=== PATIENT | female | born 1950 | race African-American/Black ===

== ENCOUNTER 2018-01-27 01:58 | Emergency (ER) | payer MEDICARE, MEDICAID ==
[2018-01-27 02:58] VITALS: TEMP 98; O2SAT 100
[2018-01-27] MEDS: ASPIRIN TABLET 325 MG TAB GT ONE (03:06)
[2018-01-27] MEDS ORDERED: ETOMIDATE INJECTION 2 MG/ML 20ML VIAL IV ONE (03:07)
[2018-01-27] MEDS ORDERED: SODIUM CHLORIDE 0.9% 1000ML 1,000 ML ONE (03:07)
[2018-01-27] MEDS: ETOMIDATE INJECTION 2 MG/ML 20ML VIAL IV ONE (03:13)
[2018-01-27] MEDS ORDERED: diltiaZEM DRIP 125 MG/25 ML VIAL IVPB ONE (03:30)
[2018-01-27] MEDS ORDERED: SODIUM CHLORIDE 0.9% 100ML 100 ML IVPB ONE (03:30)
--- NOTE | 2018-01-27 03:35 | ED.PDOC ---
History of Present Illness - General Chief Complaint: Cardiovascular Problem Stated Complaint: irregular heartbeat Time Seen by Provider: 01/27/18 02:07 Source: EMS notes reviewed, family, long term records Exam Limitations: clinical condition - History of Present Illness Initial Comments: the patient is a 67-year-old -[place] female presenting to the emergency room by EMS from a long-term ventilator care facility. 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 The patient has been in her normal state of health for the last week or 2 at least until it was noted tonight that her heart rate was varying significantly. There is been no evidence of any distress with the patient. No evidence of increased breathing. No evidence of discomfort. No diaphoresis. No evidence of any pain. The patient apparently does normally at least indicate when she is hurting. She does take deep breaths when I try to listen to her lungs. Apparently sometime she can nod yes or no to very simple questions but she is not doing that tonight and often apparently does not at the long term as well. Family was contacted upon her arrival here and they state that they have no knowledge of any arrhythmia with her in the past. I do not know any heart problems only high blood pressure. I do not know of any pulmonary emboli or DVTs in the past. The patient's vital signs have been normal until taking them tonight according to their vital signs listed. Upon arrival here the patient's heart rate would range from the low 90s up to 205 bpm. For the most part her heart rates were averaging in the 170s to 180s. After a dose of diltiazem those did slow down to the 130s on average. She still would have significant runs up to 205 bpm that would last for 20 or 30 seconds before they would slow back down. These were narrow complex beats. I have seen 3 runs of wide complex beats of approximately 7 or 8 beats in a row. She appears to be asymptomatic with all of this largely.comparison of lab work to one month ago shows a marked increase in her creatinine from around 1.05 up to 1.75 here today. It was noted that she was on vancomycin at the time of that lab work and I'm uncertain what her creatinine has been in the last week or 2. Urine output has been very minimal here. Systolic blood pressures have ranged from 95-125 here.the patient is not requiring any increased ventilator settings from her baseline. No evidence of any respiratory distress at this time. best approximation of the duration of the patient's atrial fibrillation based on long term vital signs is less than 12 hours. Timing/Duration: unsure Severity: moderate Improving Factors: nothing Worsening Factors: nothing Allergies/Adverse Reactions: Allergies NO KNOWN ALLERGY Allergy (Verified 01/27/18 02:41) Review of Systems - Review of Systems Review of Systems: 01/27/18 03:34 unable to obtain secondary to patient's clinical condition. Past Medical History (General) - Patient Medical History Hx Seizures: No Hx Stroke: Yes - Right side Hx Cardiac Disorders: Yes Hx Congestive Heart Failure: No Hx Pacemaker: No Hx Hypertension: Yes Hx Thyroid Disease: No Hx Diabetes: No Surgical History: other - Vaccination History Hx Influenza Vaccination: Yes Hx Pneumococcal Vaccination: Yes - Social History Hx Tobacco Use: No Hx Alcohol Use: No - Activities of Daily Living Senior Care/Assisted Living (if applicable):: [facility] Family Medical History - Family History Mother Family History: Unknown Physical Exam - Physical Exam General Appearance: Alert, Comfortable, No apparent distress Eye Exam: bilateral normal - for the most part her visual gaze is fixed up into the left. Ears, Nose, Throat: other - ucous membranes are moist. Neck: non-tender - racheostomy is in place., supple Respiratory: normal breath sounds - patient does have some mildbibasilar posterior rales as would be expected, no respiratory distress, no accessory muscle use Cardiovascular/Chest: normal peripheral pulses, no edema, tachycardia - irregular Peripheral Pulses: radial,right: 2+, radial,left: 2+, dorsalis pedis,right: 2+, dorsalis pedis,left: 2+ Gastrointestinal/Abdominal: non tender - g-tube is in place., soft Rectal Exam: other - Lobo catheter is in place. Extremity: other - the patient appears started developing a flexion contracture of the right wrist and of the left elbow.the patient has increased tonicity of her lower extremities with the desire to extend them Neurologic: alert, normal mood/affect - for this patient given her chronic limitations, other - the patient does actually move all 4 extremities when I touch them though in a very limited fashion Skin Exam: normal color Comments: Vital Signs - 24 hr 01/27/18 01/27/18 01/27/18 02:08 02:18 02:56 Temperature 98.0 F Pulse Rate 143 H 155 H Pulse Rate [ 109 H 118 H left] Respiratory 16 16 Rate Respiratory 16 Rate [Volume Control Data] Blood Pressure 100/57 [left] O2 Sat by Pulse 100 Oximetry Progress - Progress Progress: 01/27/18 03:40 the patient is a 67-year-old -[place] female presented to the emergency room secondary to what appears to be most likely new atrial fibrillation with rapid ventricular rate. There appears to be a very wide swing and her pulse rate with this and she does appear to have periods of short runs of a mild wide complex tachycardia. The patient did slow down some with diltiazem. After discussing with her family and receiving an elevated troponin in return, we did elect to attempt electrocardioversion first at 50 then 70 then 120 J. Electrocardioversion failed to return a normal sinus rhythm. It is however noted that after these attempts she does appear to have had several runs of trying to stay in a sinus rhythm for 15 or 20 seconds before reverting back to what appears to primarily be atrial fibrillation with a rapid ventricular rate. The patient is being placed on a diltiazem drip. She has already been given labetalol and clonidine at the long term. I am reluctant to add another antiarrhythmic onto these above, such as procainamide, amiodarone or ibutilide for fear of worsening arrhythmia. The EKG obtained when the patient appears to mostly be in a sinus rhythm shows T-wave inversions in leads 2, 3, aVF, V5 and V6. There is poor R-wave progression in anterior leads. I have no previous EKGs to compare to. There are frequent PVCs on this EKG. Several other EKGs obtained before the diltiazem show heart rates around 200 with one of them showing a regular supraventricular tachycardia and another showing an irregular supraventricular tachycardia. laboratory does definitively show a urinary tract infection as well as some dehydration. The patient is receiving IV fluids currently and is going to receive a dose of cefepime 1. Urine culture is being performed. The patient does have an elevated d-dimer which certainly with a new arrhythmia may indicate a DVT and/or pulmonary embolus. Renal function is not adequate for CT angiography of the chest. certainly this would help to rule out other large vessel pathology as well. The patient will be transferred for further evaluation of this possibility as well as for further treatment of her arrhythmia and possibility of an underlying acute coronary syndrome. CT scan of the head was performed before giving any more potent blood thinners than aspirin, given her recent history of intracranial hemorrhage. 01/27/18 03:45 CT scan of the head failed to show any acute intracranial hemorrhage, mass effect or hydrocephalus. Chest x-ray shows no new infiltrate, mass or repeat pneumothorax. The patient has received a dose of IV heparin for the possibility of both a PE and acute coronary syndrome. after risks and benefits were discussed with the family and a positive troponin returned indicating significant cardiac distress, the decision was madeto attempt electrocardioversion. the patient had already had one dose of diltiazem 10 mg IV. Pads were placed and the patient was monitored throughout. See nursing notes for details. Respiratory was present. 15 mg of etomidate was used for moderate sedation. synchronized attempts at 50, 70 and 120 J were attempted and all failed to leave the patient with a maintained sinus rhythm. All reverted back to atrial fibrillation eventually. Vital signs remained stable throughout. The patient was of course on a ventilator throughout. diltiazem drip was started immediately after. 01/27/18 04:21 the patient does have what appears to be acute on chronic renal failure and significant dehydration. She is receiving 1 L IV fluid bolus here. She has had very little urine output since her arrival. 01/27/18 04:34 - Results/Orders Results/Orders: Laboratory Tests 01/27/18 01/27/18 01/27/18 02:10 02:15 02:15 WBC 11.6 H RBC 3.19 L Hgb 8.5 L Hct 25.6 L MCV 80.3 L MCH 26.6 L MCHC 33.3 RDW 16.1 H Plt Count 327 MPV 8.1 Absolute Neuts (auto) 8.70 H Absolute Lymphs (auto) 1.60 Absolute Monos (auto) 1.20 H Absolute Eos (auto) 0.00 Absolute Basos (auto) 0.10 Neutrophils % 74.9 Lymphocytes % 14.2 L Monocytes % 10.0 H Eosinophils % 0.4 L Basophils % 0.5 PT INR PTT (SP) D-Dimer, Quantitative Sodium 132 L Potassium 3.5 L Chloride 93 L Carbon Dioxide 28 Anion Gap 14.5 BUN 43 H Creatinine 1.75 H BUN/Creatinine Ratio 24.6 H Random Glucose 118 H Serum Osmolality 276.4 Calcium 9.5 Magnesium 2.4 Total Bilirubin 1.2 H AST 36 ALT 31 Alkaline Phosphatase 61 Creatine Kinase 157 H CK-MB (CK-2) 3.9 CK-MB (CK-2) % 2.48 Troponin I 0.14 H* B-Natriuretic Peptide 351.0 H* Serum Total Protein 7.6 Albumin 3.3 Globulin 4.3 H Albumin/Globulin Ratio 0.8 L TSH Urine Color Yellow Urine Appearance Cloudy Urine pH 7.0 Ur Specific [place] 1.015 Urine Protein 30 Urine Glucose (UA) Negative Urine Ketones Negative Urine Blood Negative Urine Nitrite Negative Urine Bilirubin Negative Urine Urobilinogen 0.2 Ur Leukocyte Esterase Large H Urine RBC 0 Urine WBC Tntc H Ur Epithelial Cells 0-1 Urine Bacteria 4+ H 01/27/18 01/27/18 02:15 02:15 WBC RBC Hgb Hct MCV MCH MCHC RDW Plt Count MPV Absolute Neuts (auto) Absolute Lymphs (auto) Absolute Monos (auto) Absolute Eos (auto) Absolute Basos (auto) Neutrophils % Lymphocytes % Monocytes % Eosinophils % Basophils % PT 12.9 H INR 1.110 PTT (SP) 27.1 D-Dimer, Quantitative 778 H* Sodium Potassium Chloride Carbon Dioxide Anion Gap BUN Creatinine BUN/Creatinine Ratio Random Glucose Serum Osmolality Calcium Magnesium Total Bilirubin AST ALT Alkaline Phosphatase Creatine Kinase CK-MB (CK-2) CK-MB (CK-2) % Troponin I B-Natriuretic Peptide Serum Total Protein Albumin Globulin Albumin/Globulin Ratio TSH 1.65 Urine Color Urine Appearance Urine pH Ur Specific [place] Urine Protein Urine Glucose (UA) Urine Ketones Urine Blood Urine Nitrite Urine Bilirubin Urine Urobilinogen Ur Leukocyte Esterase Urine RBC Urine WBC Ur Epithelial Cells Urine Bacteria Departure - Departure Clinical Impression: Atrial fibrillation with rapid ventricular response, Non-ST elevation ID ( NSTEMI) Urinary tract infection Qualifiers: Urinary tract infection type: site unspecified Hematuria presence: without hematuria Qualified Code(s): N39.0 - Urinary tract infection, site not specified Acute renal failure Qualifiers: Acute renal failure type: unspecified Qualified Code(s): N17.9 - Acute kidney failure, unspecified Disposition: Transfer to Hospital Transfer to Outside Facility - Transfer Information Accepting Provider:: dr acosta Accepting Facility: [facility] Reason for Transfer: specialized care not available
[2018-01-27] MEDS ORDERED: SODIUM CHL 0.9% 100ML MINI-BAG 0 ML IVPB ONE (03:54)
[2018-01-27] MEDS: diltiaZEM DRIP 125 MG in SODIUM CHLORIDE 0.9% 100ML 100 ML IVPB SCH (04:04)
--- NOTE | 2018-01-27 04:09 | CT ---
EXAM DATE: 01/27/2018 3:28 AM CDT. PROCEDURE: CT HEAD WITHOUT IV CONTRAST. INDICATION: new arrhythmia, ich 1 month ago. COMPARISON: None. TECHNIQUE: Axial CT images of the head were acquired without intravenous contrast. This exam was performed according to our departmental dose-optimization program which includes use of Automated Exposure Control, adjustment of the mA and/or kV according to patient size and/or use of iterative reconstruction technique. FINDINGS: No acute intracranial hemorrhage. Delaney white matter differentiation is preserved. No mass effect or midline shift. Scattered white matter hypoattenuation compatible with moderate chronic microvascular angiopathy. Mild generalized brain volume loss. Unremarkable orbits. Scattered mucosal thickening throughout the paranasal sinuses. Mastoid air cells are clear. Intact calvarium. IMPRESSION: No acute intracranial abnormality. Moderate chronic small vessel ischemic disease. Electronically signed by: Jovanni Simpson MD 01/27/2018 4:07 AM CDT
[2018-01-27] MEDS ORDERED: SODIUM CHLORIDE 0.9% 50ML 0 ML ONE (04:10)
[2018-01-27] MEDS ORDERED: CEFEPIME 2 GM VIAL IVPB ONE (04:10)
[2018-01-27] MEDS ORDERED: SODIUM CHL 0.9% 50ML MIN-BAG+ 50 ML IVPB ONE (04:18)
[2018-01-27] MEDS: HEPARIN SODIUM (PORCINE) 5,000 U/ML VIAL IV ONE (04:27)
[2018-01-27] MEDS: CEFEPIME 1 GM in SODIUM CHLORIDE 0.9% 50ML 50 ML IVPB ONE (04:31)
[2018-01-27 05:04] VITALS: BP 98/79
--- NOTE | 2018-01-27 06:37 | RAD ---
Chest single view on 01/27/2018 CLINICAL INDICATION: New atrial fibrillation with rapid ventricular return COMPARISON: 01/18/2018 FINDINGS: Tracheostomy tube tip is in the upper thoracic trachea. There is mild linear atelectasis in the left lung base. The lungs are otherwise clear. Cardiac, hilar and mediastinal contours are within normal limits. Pulmonary vascularity is within normal limits. IMPRESSION: No acute disease. Electronically signed by: Jin 01/27/2018 6:36 AM CDT
== END 2018-01-27 05:10 | disposition short-term general hospital (02) ==
LOC: ER 01:58
DX: I21.4 Non-ST elevation (NSTEMI) myocardial infarction (principal); I48.91 Unspecified atrial fibrillation; N39.0 Urinary tract infection, site not specified; N17.9 Acute kidney failure, unspecified; Z99.11 Dependence on respirator [ventilator] status; E86.0 Dehydration

== ENCOUNTER 2018-03-22 15:06 | Emergency (ER) | payer MEDICARE, MEDICAID ==
[2018-03-22 15:22] VITALS: TEMP 97.4; O2SAT 100
--- NOTE | 2018-03-22 16:28 | RAD ---
EXAM DESCRIPTION: Neck,Soft Tissue CLINICAL HISTORY: 67 years Female, trach placement COMPARISON: Chest x-ray portable 01/27/2018. TECHNIQUE: Cross table AP and lateral portable soft tissue neck and upper chest. FINDINGS: Endotracheal cuff interpreted to be in customary position and similar in position to the prior portable chest x-ray. With a cold metallic screening in the distal aspect is overlying the chest and the trachea as seen on the lateral and AP images. A similar line can be seen connected to the endotracheal cuff on the prior study. The included airway shows no abnormal foreign bodies. IMPRESSION: Endotracheal cuff in customary position. Stable since January 2013. No foreign bodies in the airway or chest wall. CRITICAL COMMUNICATION: The critical value was discussed directly by phone with Dr. Benjamin Jin at approximately 1620 hours, on March 22, 2018. Electronically signed by: Santi Mobley MD 03/22/2018 4:27 PM CDT
--- NOTE | 2018-03-22 16:46 | ED.PDOC ---
History of Present Illness - General Chief Complaint: General Stated Complaint: tracheotomy verification Time Seen by Provider: 03/22/18 16:42 Source: patient Exam Limitations: clinical condition - History of Present Illness Initial Comments: The patient is a 67-year-old female sent up here to the emergency room from [facility] secondary to a questionable read on a x-ray after a trach replacement. The patient is in no distress. She is oxygenating and ventilating well on the ventilator. She looks around and is calm and quiet. External examination of thetracheostomy appears to show that it is in place. There seems to be moving freely [id number] throughout. No significant bleeding. Collar is in place. Allergies/Adverse Reactions: Allergies NO KNOWN ALLERGY Allergy (Verified 03/22/18 15:21) Review of Systems - Review of Systems Review of Systems: 03/22/18 16:44 atient unable to give review of systems. Past Medical History (General) - Patient Medical History Hx Seizures: No Hx Stroke: Yes - Right side Hx Cardiac Disorders: Yes Hx Congestive Heart Failure: No Hx Pacemaker: No Hx Hypertension: Yes Hx Thyroid Disease: No Hx Diabetes: No Surgical History: other - Vaccination History Hx Influenza Vaccination: Yes Hx Pneumococcal Vaccination: Yes - Social History Hx Tobacco Use: No Hx Alcohol Use: No - Activities of Daily Living Senior Living/Assisted Living (if applicable):: [facility] Family Medical History - Family History Mother Family History: Unknown Physical Exam - Physical Exam General Appearance: Alert, Comfortable, No apparent distress Eye Exam: bilateral normal Ears, Nose, Throat: normal pharynx Neck: other - tracheostomy is in place Respiratory: lungs clear, normal breath sounds, no respiratory distress, no accessory muscle use Cardiovascular/Chest: normal peripheral pulses, no edema Peripheral Pulses: radial,right: 2+, radial,left: 2+ Gastrointestinal/Abdominal: non tender, soft, other - perative sites noted Rectal Exam: deferred Neurologic: alert, normal mood/affect - for this patient Skin Exam: normal color Comments: Vital Signs - 8 hr 03/22/18 15:10 Temperature 97.4 F L Pulse Rate [ 60 pulse ox] Respiratory 18 Rate Blood Pressure 164/79 [Right Arm] O2 Sat by Pulse 100 Oximetry Progress - Progress Progress: 03/22/18 16:45 the patient is a 67-year-old -[place] female patient presenting for x- ray secondary due to a questionable read from a previous x-ray on her trach replacement. Soft tissue of the neck was performed here which shows no evidence of any unusual placement of the trach. It does appear appropriate. The patient is in no distress. Continue current use. The patient will be transferred back to [facility]. Return to ER for emergencies. Departure - Departure Clinical Impression: Tracheostomy in place Disposition: Discharge to Home or Self Care Condition: Fair Departure Forms: ED Discharge - Pt. Copy, Patient Portal Self Enrollment Diet: other Activity: increase activity as tolerated Referrals: KRISHNA OATES [Primary Care Provider] - 1-2 Weeks Additional Instructions: the patient is a 67-year-old -[place] female patient presenting for x- ray secondary due to a questionable read from a previous x-ray on her trach replacement. Soft tissue of the neck was performed here which shows no evidence of any unusual placement of the trach. It does appear appropriate. The patient is in no distress. Continue current use. The patient will be transferred back to [facility]. Return to ER for emergencies.
[2018-03-22 17:16] VITALS: BP 176/80
== END 2018-03-22 17:16 ==
LOC: ER 15:06
DX: Z43.0 Encounter for attention to tracheostomy (principal); I10 Essential (primary) hypertension

== ENCOUNTER 2018-04-17 01:23 | Emergency (ER) | payer MEDICARE, MEDICAID ==
[2018-04-17] MEDS ORDERED: IPRATROPIUM BROMIDE NEBS 0.5 MG/2.5 ML VIAL NEB ONE (01:41)
[2018-04-17] MEDS ORDERED: LEVALBUTEROL NEBS 1.25 MG/3 ML VIAL NEB ONE (01:42)
[2018-04-17] MEDS: cloNIDine HCL 0.1 MG TAB GT ONE (01:44)
[2018-04-17] MEDS: FUROSEMIDE 40 MG TAB GT ONE (01:44)
--- NOTE | 2018-04-17 02:15 | RAD ---
EXAM DESCRIPTION: 2 views of the chest CLINICAL HISTORY: hypoxia, resp distress, vent pt COMPARISON: 01/27/2018 FINDINGS: Frontal and lateral views of the chest. Tracheostomy in place. Cardiomegaly. Diffuse bilateral airspace opacity. No pneumothorax or definite pleural effusion. No acute osseous abnormalities. Leads overlie the chest. Upper abdominal soft tissues are unremarkable. IMPRESSION: 1. Diffuse bilateral airspace opacities. This could be related to pulmonary edema or bilateral pneumonic process. 2. Cardiomegaly. Electronically signed by: Angel Young 04/17/2018 2:14 AM CDT
[2018-04-17] MEDS: LEVALBUTEROL NEBS 1.25 MG/3 ML VIAL NEB ONE (02:54)
[2018-04-17] MEDS: IPRATROPIUM BROMIDE NEBS 0.5 MG/2.5 ML VIAL NEB ONE (02:54)
--- NOTE | 2018-04-17 05:16 | ED.PDOC ---
History of Present Illness - General Chief Complaint: Respiratory Problem Stated Complaint: respiratory distress Time Seen by Provider: 04/17/18 01:31 Source: RN notes reviewed, EMS notes reviewed, [facility] records Exam Limitations: clinical condition - History of Present Illness Initial Comments: the patient is a 68-year-old [place] female presenting to the emergency room secondary to respiratory distress at the long-term ventilator care facility. The patient has long-term respiratory failure and is on a ventilator normally. Over the last 2 days she has had increased anxiety and increased work of breathing. Today she has had significant oxygen desaturations down into the 70th percentile with pink frothy sputum coming up the ET tube. She does have a history of congestive heart failure apparently. She has a normal sinus rhythm upon arrival however her systolic blood pressures have ranged as high as 230. Additionally look at her paperwork [facility] the [facility] she has gained approximately 13 pounds over the last couple of months. There's been no fever. She has had multiple infections in the past. She does have chronic right upper extremity dependent edema from a source that I'm not certain at this point. I'm uncertain if she has had any DVTs or pulmonary emboli in the past but there is no record of it with the [facility]it[facility]iary records. She did have a elevated d-dimer of 500 on a blood check drawn here as an outpatient 3 months ago but I have no records as to any further evaluation of that done at the time. She is not currently on any blood thinners according to her current medication list. She does not appear to be on any antibiotics either. The patient is unable to communicate but she does look around and is somewhat expressive with her facial expressions. She has significant contractures of the left upper extremity and again significant edema of the right upper extremity. She has multiple scars from previous central line sites. Timing/Duration: 24 hours Severity: severe Improving Factors: nothing Worsening Factors: nothing Allergies/Adverse Reactions: Allergies NO KNOWN ALLERGY Allergy (Verified 03/22/18 15:21) Home Medications: Ambulatory Orders Acetaminophen [Tylenol] 04/17/18 Amiodarone HCl 200 mg PO 04/17/18 Budesonide (Inhalation) [Budesonide] 04/17/18 Cyanocobalamin [Vitamin B-12] 04/17/18 Cyclobenzaprine HCl 5 mg PO 04/17/18 Docusate Sodium 100 mg PO 04/17/18 Famotidine 20 mg PO 04/17/18 Ferrous Sulfate 220 mg PO 04/17/18 Folic Acid 1 mg PO 04/17/18 Hydralazine HCl 100 mg PO 04/17/18 Ipratropium [place] Nebs [Atrovent NEBS] 0.5 mg INH 04/17/18 LORazepam [Ativan] 0.5 mg PO 04/17/18 Labetalol HCl 200 mg PO 04/17/18 Levalbuterol Nebs [Xopenex NEBS] 04/17/18 Levetiracetam [Keppra] 04/17/18 Magnesium Hydroxide [Milk Of Magnesia] 04/17/18 Metoprolol Tartrate 50 mg PO 04/17/18 Polyethylene Glycol 3350 [Miralax] 04/17/18 Review of Systems - Review of Systems Review of Systems: 04/17/18 05:16 unable to perform review of systems secondary to patient's chronic medical condition Past Medical History (General) - Patient Medical History Hx Seizures: No Hx Stroke: Yes - Right side Hx Cardiac Disorders: Yes Hx Congestive Heart Failure: No Hx Pacemaker: No Hx Hypertension: Yes Hx Thyroid Disease: No Hx Diabetes: No Hx Renal Disease: Yes - Vaccination History Hx Influenza Vaccination: Yes Hx Pneumococcal Vaccination: Yes Immunizations Up to Date: Yes - Social History Hx Tobacco Use: No Hx Alcohol Use: No - Activities of Daily Living Intermediate/Assisted Living (if applicable):: [facility] Family Medical History - Family History Mother Family History: Unknown Physical Exam - Physical Exam General Appearance: Alert, Anxious, Other - initially diaphoretic Eye Exam: bilateral normal Ears, Nose, Throat: hearing grossly normal, normal ENT inspection, normal pharynx Neck: non-tender, supple, other - tracheostomy is in place with chronic changes made by the fixator Respiratory: respiratory distress, accessory muscle use, crackles, rales, rhonchi Cardiovascular/Chest: other - edema of the right upper extremity. +1 edema bilateral lower extremities. Peripheral Pulses: radial,right: 1+, radial,left: 1+, dorsalis pedis,right: 1+, dorsalis pedis,left: 1+ Gastrointestinal/Abdominal: non tender - G-tube is in place., soft Rectal Exam: other - Lobo catheter is in place. Back Exam: no CVA tenderness Extremity: normal capillary refill, pedal edema - +1, other - the patient does have significant rigidity to her extremities. She dooes have flexion contracture at the left elbow as well as stiffness of the shoulder. Neurologic: alert, other - she is anxious. Unable to test orientation. Unable to test for sensation and the patient has essentially a quadriplegic Skin Exam: normal color Comments: Vital Signs - 24 hr 04/17/18 04/17/18 04/17/18 01:36 01:45 01:48 Temperature 99.0 F Pulse Rate [ 90 88 Right] Respiratory 20 20 20 Rate Blood Pressure 210/110 186/94 [Right Arm] O2 Sat by Pulse 97 94 L Oximetry 04/17/18 04/17/18 02:23 03:51 Temperature Pulse Rate [ 84 70 Right] Respiratory 20 20 Rate Blood Pressure 136/82 124/68 [Right Arm] O2 Sat by Pulse 96 95 Oximetry Progress - Progress Progress: 04/17/18 05:21 the patient is a 68-year-old -[place] female presenting to the emergency room secondary to respiratory distress. the patient was in pulmonary edema secondary to uncontrolled hypertension with systolic blood pressures peaking at 230 on that initial check with EMS. By the time she arrived here her systolic blood pressure was down to 210. We were able to get her blood pressures down into the 120s prior to transfer. Lung mayorga did clear with improvement of her blood pressures. She did receive a dose of Lasix as well and has put out some urine. There is a question of a background pneumonia with this patient. She does have scattered pulmonary opacities and she does have a elevation of white blood cell count. A blood culture has been performed. She is receiving a dose of cefepime. She is oxygenating much better at this point in time. This was a hypertensive emergency with resultant pulmonary edema. The patient additionally does have an elevated d-dimer and will need at least all 4 extremity Dopplers if not additional pulmonary imaging the form of a CT angiogram versus a VQ scan. We did obtain a ultrasound guided 18-gauge catheter to the left lower basilic vein with the intent of performing a CT angiogram here, however due to the patient's contracture of the left upper extremity the catheter kinked and pulled out. I do not believe at this time it would benefit the patient to have a central line placed here simply for the purpose of the CT angiogram. I believe she would be better off having a midline placed at the receiving facility as an examination of her body shows significant scarring from multiple previous central lines. She does have a peripheral IV through which she is getting IV antibiotics currently. The patient is stable at this time for transfer and further workup and treatment. we have been able to wean back down the patient's ventilator settings closer to her baseline but the pressure support that has been added seems to be beneficial still. the patient's urine is of course still not clear as she does have a chronic indwelling Lobo catheter. Culture will be done. critical care time spent on this patient excluding otherwise billable procedures , for treatment of her hypertensive emergency with pulmonary edema is 45 minutes. - Results/Orders Results/Orders: 04/17/18 01:31 Telemetry .CONTINUOUS 04/17/18 01:32 ABG [Arterial Blood Gas] Stat 04/17/18 01:44 URINE CULTURE W/COLONY COUNT Stat 04/17/18 01:45 BLOOD CULTURE Stat chest x-ray shows evidence of cardiomegaly and fluid overload as well as scattered pulmonary opacities that could be from pulmonary edema and/or pneumonia. 04/17/18 03:00 EKG STAT showed normal sinus rhythm with a mild right axis deviation. Poor R- wave progression in anterior leads. No acute ST segment changes worrisome for ischemia. She does have mild T-wave inversion in lead V6. She does have a borderline corrected QT interval. Rate is 87 bpm. Laboratory Results - last 24 hr 04/17/18 04/17/18 04/17/18 01:44 01:45 01:45 WBC 15.1 H RBC 3.42 L Hgb 9.1 L Hct 28.2 L MCV 82.5 MCH 26.6 L MCHC 32.4 L RDW 15.6 H Plt Count 272 MPV 8.6 Absolute Neuts (auto) 13.10 H Absolute Lymphs (auto) 0.70 L Absolute Monos (auto) 1.10 H Absolute Eos (auto) 0.20 Absolute Basos (auto) 0.10 Neutrophils % 86.6 H Lymphocytes % 4.8 L Monocytes % 7.1 Eosinophils % 1.1 Basophils % 0.4 PT INR PTT (SP) D-Dimer, Quantitative Sodium 139 Potassium 3.8 Chloride 103 Carbon Dioxide 29 Anion Gap 10.8 L BUN 25 H Creatinine 0.98 BUN/Creatinine Ratio 25.5 H Random Glucose 143 H Serum Osmolality 284.4 Lactic Acid Calcium 9.1 Total Bilirubin 0.7 AST 17 ALT 18 Alkaline Phosphatase 45 Creatine Kinase 75 CK-MB (CK-2) 1.5 CK-MB (CK-2) % Not Reportable Troponin I 0.02 B-Natriuretic Peptide 661.0 H* Serum Total Protein 7.1 Albumin 3.5 Globulin 3.6 H Albumin/Globulin Ratio 1.0 L Urine Color Yellow Urine Appearance Sl cloudy Urine pH 8.5 H Ur Specific [place] 1.020 Urine Protein 100 H Urine Glucose (UA) Negative Urine Ketones Negative Urine Blood Small H Urine Nitrite Negative Urine Bilirubin Negative Urine Urobilinogen 0.2 Ur Leukocyte Esterase Moderate H Urine RBC 10-20 H Urine WBC 10-20 H Ur Epithelial Cells 0 Amorphous Sediment 2+ Urine Bacteria 4+ H Urine Mucus Small 04/17/18 04/17/18 01:45 01:45 WBC RBC Hgb Hct MCV MCH MCHC RDW Plt Count MPV Absolute Neuts (auto) Absolute Lymphs (auto) Absolute Monos (auto) Absolute Eos (auto) Absolute Basos (auto) Neutrophils % Lymphocytes % Monocytes % Eosinophils % Basophils % PT 13.2 H INR 1.140 PTT (SP) 28.0 D-Dimer, Quantitative 932 H* Sodium Potassium Chloride Carbon Dioxide Anion Gap BUN Creatinine BUN/Creatinine Ratio Random Glucose Serum Osmolality Lactic Acid 0.8 Calcium Total Bilirubin AST ALT Alkaline Phosphatase Creatine Kinase CK-MB (CK-2) CK-MB (CK-2) % Troponin I B-Natriuretic Peptide Serum Total Protein Albumin Globulin Albumin/Globulin Ratio Urine Color Urine Appearance Urine pH Ur Specific [place] Urine Protein Urine Glucose (UA) Urine Ketones Urine Blood Urine Nitrite Urine Bilirubin Urine Urobilinogen Ur Leukocyte Esterase Urine RBC Urine WBC Ur Epithelial Cells Amorphous Sediment Urine Bacteria Urine Mucus Departure - Departure Clinical Impression: Hypertensive emergency Pulmonary edema Qualifiers: Chronicity: acute Qualified Code(s): J81.0 - Acute pulmonary edema CHF exacerbation Qualifiers: Congestive heart failure type: unspecified congestive heart failure type Qualified Code(s): I50.9 - Heart failure, unspecified Disposition: Transfer to Hospital Condition: Serious Referrals: KRISHNA OATES [Primary Care Provider] - 1-2 Weeks Home Medications: Ambulatory Orders Acetaminophen [Tylenol] 04/17/18 Amiodarone HCl 200 mg PO 04/17/18 Budesonide (Inhalation) [Budesonide] 04/17/18 Cyanocobalamin [Vitamin B-12] 04/17/18 Cyclobenzaprine HCl 5 mg PO 04/17/18 Docusate Sodium 100 mg PO 04/17/18 Famotidine 20 mg PO 04/17/18 Ferrous Sulfate 220 mg PO 04/17/18 Folic Acid 1 mg PO 04/17/18 Hydralazine HCl 100 mg PO 04/17/18 Ipratropium [place] Nebs [Atrovent NEBS] 0.5 mg INH 04/17/18 LORazepam [Ativan] 0.5 mg PO 04/17/18 Labetalol HCl 200 mg PO 04/17/18 Levalbuterol Nebs [Xopenex NEBS] 04/17/18 Levetiracetam [Keppra] 04/17/18 Magnesium Hydroxide [Milk Of Magnesia] 04/17/18 Metoprolol Tartrate 50 mg PO 04/17/18 Polyethylene Glycol 3350 [Miralax] 04/17/18 Transfer to Outside Facility - Transfer Information Accepting Provider:: dr stauffer Accepting Facility: [facility] Reason for Transfer: ICU
[2018-04-17 05:44] VITALS: BP 165/78; TEMP 98.9; O2SAT 97
[2018-04-17] MEDS: CIPROFLOXACIN 250 MG TAB PO ONE (05:50)
[2018-04-17] MEDS ORDERED: CEFEPIME 2 GM VIAL IVPB ONE (05:56)
[2018-04-17] MEDS ORDERED: SODIUM CHL 0.9% 50ML MIN-BAG+ 50 ML IVPB ONE (05:56)
[2018-04-17] MEDS: CEFEPIME 2 GM in SODIUM CHL 0.9% 50ML MIN-BAG+ 50 ML IVPB ONE (05:59)
[2018-04-17] MEDS: NITROGLYCERIN 2% 1 GM UD TOP ONE (06:03)
[2018-04-17] MEDS ORDERED: NITROGLYCERIN 2% 1 GM UD TOP ONE (06:03)
== END 2018-04-17 06:30 | disposition short-term general hospital (02) ==
LOC: ER 01:23
DX: J81.0 Acute pulmonary edema (principal); I16.0 Hypertensive urgency; I11.0 Hypertensive heart disease with heart failure; I50.9 Heart failure, unspecified; M62.422 Contracture of muscle, left upper arm; Z99.11 Dependence on respirator [ventilator] status; Z79.899 Other long term (current) drug therapy; Z86.73 Personal history of transient ischemic attack (TIA), and cerebral infarction without residual deficits
CPT/HCPCS: 71045; 80053; 81001; 82550; 82553; 83605; 83880; 84484; 85025; 85379; 85610; 85730; 87040; 87086; 87088; 87186; 93005; 94002; 94640; 94770; J0692; J7050; J7614; J7644

== ENCOUNTER 2018-04-25 07:27 | Emergency (ER) | payer MEDICARE, MEDICAID ==
[2018-04-25 07:36] VITALS: O2SAT 100
[2018-04-25] MEDS ORDERED: IPRATROPIUM/ALBUTEROL 3 ML VIAL NEB ONE ×2 (07:39→07:51)
--- NOTE | 2018-04-25 07:46 | ED.PDOC ---
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 Timing/Duration: 1-3 hours Severity: moderate Improving Factors: nothing Worsening Factors: nothing Associated Symptoms: shortness of breath Allergies/Adverse Reactions: Allergies NO KNOWN ALLERGY Allergy (Verified 03/22/18 15:21) Home Medications: Ambulatory Orders Acetaminophen [Tylenol] 04/17/18 Amiodarone HCl 200 mg PO 04/17/18 Budesonide (Inhalation) [Budesonide] 04/17/18 Cyanocobalamin [Vitamin B-12] 04/17/18 Cyclobenzaprine HCl 5 mg PO 04/17/18 Docusate Sodium 100 mg PO 04/17/18 Famotidine 20 mg PO 04/17/18 Ferrous Sulfate 220 mg PO 04/17/18 Folic Acid 1 mg PO 04/17/18 Hydralazine HCl 100 mg PO 04/17/18 Ipratropium [place] Nebs [Atrovent NEBS] 0.5 mg INH 04/17/18 LORazepam [Ativan] 0.5 mg PO 04/17/18 Labetalol HCl 200 mg PO 04/17/18 Levalbuterol Nebs [Xopenex NEBS] 04/17/18 Levetiracetam [Keppra] 04/17/18 Magnesium Hydroxide [Milk Of Magnesia] 04/17/18 Metoprolol Tartrate 50 mg PO 04/17/18 Polyethylene Glycol 3350 [Miralax] 04/17/18 Cefdinir [Omnicef] 300 mg PO BID 10 Days #20 cap 04/25/18 Review of Systems - Review of Systems Respiratory: States: see HPI Neurological: States: see HPI, pre-existing deficit Unable to Obtain Due To: condition, clinical condition, other - non verbal Past Medical History (General) - Patient Medical History Hx Seizures: No Hx Stroke: Yes - Right side Hx Cardiac Disorders: Yes Hx Congestive Heart Failure: No Hx Pacemaker: No Hx Hypertension: Yes Hx Thyroid Disease: No Hx Diabetes: No Hx Renal Disease: Yes Surgical History: other - tracheostomy - Vaccination History Hx Influenza Vaccination: Yes Hx Pneumococcal Vaccination: Yes - Social History Hx Tobacco Use: No Hx Alcohol Use: No - Activities of Daily Living Patient Lives Alone: No Long Term/Assisted Living (if applicable):: [facility] Grooming Ability: Total Assistance Eating (Feeding) Ability: Total Assistance Toileting Ability: Total Assistance Family Medical History - Family History Mother Family History: Unknown Physical Exam - Physical Exam General Appearance: Comfortable, No apparent distress, Other - awake Eye Exam: bilateral normal Ears, Nose, Throat: hearing grossly normal Neck: supple, normal inspection Respiratory: no respiratory distress, rhonchi - right >left Cardiovascular/Chest: normal peripheral pulses, regular rate, rhythm, no murmur Peripheral Pulses: radial,right: 2+, radial,left: 2+ Gastrointestinal/Abdominal: non tender, soft, no organomegaly, other - G-tube intact/patent Extremity: no pedal edema, other - joint stiffness upper and lower extremities Neurologic: alert, other - non verbal Skin Exam: normal color, warm/dry Lymphatic: no adenopathy Progress - Progress Progress: 04/25/18 07:49 04/25/18 07:39 Mechanical Ventilation DAILY SVN/Updraft Therapy .[facility] 04[facility]25[facility]18 09[facility] Vital Signs - 8 hr 04/25/18 07:35 Temperature 99.1 F Pulse Rate [ 83 Right Radial] Respiratory 16 Rate Blood Pressure 136/76 [Right Arm] O2 Sat by Pulse 100 Oximetry 04/25/18 10:20 tracheostomy de clogged suctioned thick mucus secretion after instilling saline and TV went up to 500 with goo Sa02 - Results/Orders Results/Orders: 04/25/18 07:39 Mechanical Ventilation DAILY SVN/Updraft Therapy .ONCE 04/25/18 07:51 IV Care:Saline Lock per Protoc QSHIFT SVN/Updraft Therapy .ONCE 04/25/18 08:00 EKG STAT 04/25/18 08:28 URINE CULTURE W/COLONY COUNT Stat 04/25/18 09:00 Updrafts Daily Updrafts Daily Laboratory Results - last 24 hr 04/25/18 04/25/18 04/25/18 08:00 08:00 08:28 WBC 13.5 H RBC 3.86 L Hgb 10.6 L Hct 32.4 L MCV 84.1 MCH 27.4 MCHC 32.8 L RDW 16.2 H Plt Count 233 MPV 8.4 Absolute Neuts (auto) 12.20 H Absolute Lymphs (auto) 0.40 L Absolute Monos (auto) 0.80 Absolute Eos (auto) 0.00 Absolute Basos (auto) 0.10 Neutrophils % 90.5 H Lymphocytes % 2.9 L Monocytes % 6.0 Eosinophils % 0.1 L Basophils % 0.5 PT 12.4 INR 1.070 PTT (SP) 28.1 Sodium 139 Potassium 3.6 Chloride 103 Carbon Dioxide 27 Anion Gap 12.6 BUN 32 H Creatinine 1.10 BUN/Creatinine Ratio 29.1 H Random Glucose 160 H Serum Osmolality 287.9 Lactic Acid 1.0 Calcium 9.1 Magnesium 1.9 Total Bilirubin 0.7 Direct Bilirubin 0.1 Indirect Bilirubin 0.6 AST 18 ALT 16 Alkaline Phosphatase 40 L Creatine Kinase 78 CK-MB (CK-2) 2.3 CK-MB (CK-2) % Not Reportable Troponin I 0.03 Serum Total Protein 7.1 Albumin 3.6 Urine Color Yellow Urine Appearance Sl cloudy Urine pH 6.0 Ur Specific [place] 1.015 Urine Protein 100 H Urine Glucose (UA) Negative Urine Ketones Negative Urine Blood Trace-lysed H Urine Nitrite Negative Urine Bilirubin Negative Urine Urobilinogen 1.0 Ur Leukocyte Esterase Small H Urine RBC 3-5 H Urine WBC 5-10 H Ur Epithelial Cells 1-3 Urine Bacteria 1+ - EKG/XRAY/CT EKG: Sinus Comments: HR-72 XRAY: chest - no pneumothorax or effusion,interval improvement of the lung since April 17 Departure - Departure Clinical Impression: Ventilator dependence, History of pneumonia Tracheostomy complication, unspecified Qualifiers: Tracheostomy complication: stoma malfunction Qualified Code(s): J95.03 - Malfunction of tracheostomy stoma Chronic respiratory failure, unspecified whether with hypoxia or hypercapnia Qualifiers: Respiratory failure complication: unspecified whether with hypoxia or hypercapnia Qualified Code(s): J96.10 - Chronic respiratory failure, unspecified whether with hypoxia or hypercapnia Time of Disposition: 10:24 Disposition: Discharge to SNF Condition: Fair Departure Forms: ED Discharge - Pt. Copy, Patient Portal Self Enrollment Referrals: KRISHNA OATES [Primary Care Provider] - 1-2 Weeks Prescriptions: Cefdinir [Omnicef] 300 mg PO BID 10 Days #20 cap Home Medications: Ambulatory Orders Acetaminophen [Tylenol] 04/17/18 Amiodarone HCl 200 mg PO 04/17/18 Budesonide (Inhalation) [Budesonide] 04/17/18 Cyanocobalamin [Vitamin B-12] 04/17/18 Cyclobenzaprine HCl 5 mg PO 04/17/18 Docusate Sodium 100 mg PO 04/17/18 Famotidine 20 mg PO 04/17/18 Ferrous Sulfate 220 mg PO 04/17/18 Folic Acid 1 mg PO 04/17/18 Hydralazine HCl 100 mg PO 04/17/18 Ipratropium [place] Nebs [Atrovent NEBS] 0.5 mg INH 04/17/18 LORazepam [Ativan] 0.5 mg PO 04/17/18 Labetalol HCl 200 mg PO 04/17/18 Levalbuterol Nebs [Xopenex NEBS] 04/17/18 Levetiracetam [Keppra] 04/17/18 Magnesium Hydroxide [Milk Of Magnesia] 04/17/18 Metoprolol Tartrate 50 mg PO 04/17/18 Polyethylene Glycol 3350 [Miralax] 04/17/18 Cefdinir [Omnicef] 300 mg PO BID 10 Days #20 cap 04/25/18 Additional Instructions: Return To ER as needed;Follow up with primary Md 26 april 2018
--- NOTE | 2018-04-25 08:08 | RAD ---
EXAM DESCRIPTION: Chest,1 View CLINICAL HISTORY: sob COMPARISON: April 17, 2018 FINDINGS: A tracheostomy tube remains in place. The heart is at the upper limits of normal size, stable. Prominence of the right paratracheal stripe is unchanged from the previous exam. Subsegmental atelectasis or scarring is noted in the left lung base. Nor space consolidation or pleural effusion. The lumbar rims are within normal range. There is no pneumothorax or acute fracture. IMPRESSION: No acute intrathoracic abnormality. Interval improvement in appearance of the lungs from April 17, 2018. Electronically signed by: Marcus Morrow MD 04/25/2018 8:06 AM CDT
[2018-04-25] MEDS ORDERED: SODIUM CHLORIDE 0.9% 500ML 500 ML IVS ONE (08:57)
[2018-04-25] MEDS ORDERED: cefTRIAXone SODIUM 2 GM in SODIUM CHL 0.9% 100ML MINI-BAG 100 ML IVPB ONE (09:49)
[2018-04-25] MEDS ORDERED: SODIUM CHL 0.9% 100ML MINI-BAG 100 ML IVPB ONE (09:58)
[2018-04-25] MEDS ORDERED: HEPARIN SODIUM 100 U/ML 5 ML SYG IV ONE (11:21)
[2018-04-25 11:42] VITALS: BP 132/71; TEMP 99.1
== END 2018-04-25 11:18 ==
LOC: ER 07:27
DX: J95.03 Malfunction of tracheostomy stoma (principal); J96.10 Chronic respiratory failure, unspecified whether with hypoxia or hypercapnia; I69.398 Other sequelae of cerebral infarction; I10 Essential (primary) hypertension; Z87.01 Personal history of pneumonia (recurrent); Z79.899 Other long term (current) drug therapy; Z99.11 Dependence on respirator [ventilator] status; Z74.01 Bed confinement status
CPT/HCPCS: 36415; 71045; 80048; 80076; 81001; 82550; 82553; 82948; 83605; 84484; 85025; 85610; 85730; 87086; 93005; 94002; 94640; J0696; J1642; J7040; J7050; J7620

== ENCOUNTER 2018-06-27 20:44 | Emergency (ER) | payer MEDICARE, MEDICAID ==
[2018-06-27] MEDS ORDERED: EPINEPHrine INJ 0.1 MG/ML 10 ML SYG IV ONE (20:45)
[2018-06-27] MEDS ORDERED: SODIUM CHLORIDE 0.9% 1000ML 1,000 ML ONE ×2 (21:01→21:56)
--- NOTE | 2018-06-27 21:32 | RAD ---
EXAM DESCRIPTION: Chest,1 View CLINICAL HISTORY: 68 years Female, POST CPR COMPARISON: AP chest June 06, 2018 FINDINGS: Tracheostomy tube is present There is a moderate to large left pneumothorax. No significant pleural effusion. No obvious pulmonary consolidation. Cardiac silhouette appears mildly enlarged. There is mild rightward deviation of the cardiac and mediastinal silhouette. Aortic atherosclerosis and tortuosity is noted. Osseous structures are unremarkable. IMPRESSION: Moderate to large left pneumothorax with mild rightward cardiomediastinal shift. Findings communicated to Dr. Anand at 2130 hours central time on June 27, 2018. Electronically signed by: Juan Espinosa MD 06/27/2018 9:30 PM CDT
[2018-06-27] MEDS ORDERED: CHLORHEXIDINE GLUCONATE 4 % 15 ML UD TOP ONE (21:33)
[2018-06-27] MEDS ORDERED: LIDOCAINE 1% 10 ML VIAL INJ ONE (21:36)
[2018-06-27] MEDS ORDERED: LIDOCAINE 1% W/ EPINEPHRINE 20 ML VIAL INJ ONE (21:38)
--- NOTE | 2018-06-27 21:58 | ED.PDOC ---
History of Present Illness - General Chief Complaint: General Stated Complaint: unresponsiveness Time Seen by Provider: 06/27/18 21:25 Source: RN notes reviewed, EMS notes reviewed Exam Limitations: clinical condition - patient on vent - History of Present Illness Initial Comments: Rosaura Quiles 68 y/o female w/ chronic respiratory failure ventilator dependent s/ p tracheostomy brought by EMS after she [facility] but on EMS arrival they noted eyes were open ,frowning but on arrival here at ER she desaturated and became pulseless then coded chest compression done for about 8-10 minutes as well bagged thru her tracheostomy tube and one dose of epinephrine given and ROSC was ahcived BP-98 /56 HR initially 12 then 70,s.Also chest x ray -showed left pneumothorax chest tube placement done connected to Pleur evac. Timing/Duration: 1-3 hours Severity: severe Improving Factors: nothing Worsening Factors: nothing Associated Symptoms: other - see hpi Allergies/Adverse Reactions: Allergies NO KNOWN ALLERGY Allergy (Verified 03/22/18 15:21) Home Medications: Ambulatory Orders Acetaminophen [Tylenol] 04/17/18 Amiodarone HCl 200 mg PO 04/17/18 Budesonide (Inhalation) [Budesonide] 04/17/18 Cyanocobalamin [Vitamin B-12] 04/17/18 Cyclobenzaprine HCl 5 mg PO 04/17/18 Docusate Sodium 100 mg PO 04/17/18 Famotidine 20 mg PO 04/17/18 Ferrous Sulfate 220 mg PO 04/17/18 Folic Acid 1 mg PO 04/17/18 Hydralazine HCl 100 mg PO 04/17/18 Ipratropium [place] Nebs [Atrovent NEBS] 0.5 mg INH 04/17/18 LORazepam [Ativan] 0.5 mg PO 04/17/18 Labetalol HCl 200 mg PO 04/17/18 Levalbuterol Nebs [Xopenex NEBS] 04/17/18 Levetiracetam [Keppra] 04/17/18 Magnesium Hydroxide [Milk Of Magnesia] 04/17/18 Metoprolol Tartrate 50 mg PO 04/17/18 Polyethylene Glycol 3350 [Miralax] 04/17/18 Cefdinir [Omnicef] 300 mg PO BID 10 Days #20 cap 04/25/18 Review of Systems - Review of Systems Unable to Obtain Due To: condition, intubated, clinical condition Past Medical History (General) - Patient Medical History Hx Seizures: No Hx Stroke: Yes - Right side Hx Cardiac Disorders: Yes Hx Congestive Heart Failure: No Hx Pacemaker: No Hx Hypertension: Yes Hx Thyroid Disease: No Hx Diabetes: No Hx Renal Disease: Yes Hx Other PMH: Yes - chronic respiratory failure;ventilator dependent Surgical History: other - hysterectomy,tracheostomy - Vaccination History Hx Influenza Vaccination: Yes Hx Pneumococcal Vaccination: Yes - Social History Hx Tobacco Use: No Hx Alcohol Use: No Family Medical History - Family History Mother Family History: Unknown Physical Exam - Physical Exam General Appearance: Other - unresponsive;vegetative state Ears, Nose, Throat: normal ENT inspection Neck: other - tracheostomy tube patent Respiratory: decreased breath sounds - both lungs Cardiovascular/Chest: no gallop, tachycardia - hr 121 Peripheral Pulses: radial,right: 1+, radial,left: 1+ Gastrointestinal/Abdominal: soft, no organomegaly Extremity: no pedal edema, other - contracture deformities joints upper and lower extremities Neurologic: other - unresponsive;vegetative state Skin Exam: warm/dry Progress - Progress Progress: 06/27/18 22:29 Vital Signs - 8 hr 06/27/18 06/27/18 06/27/18 20:50 21:00 21:30 Temperature 100.0 F H Pulse Rate [ 98 H 88 112 H Right] Respiratory 16 16 16 Rate Blood Pressure 89/58 111/68 [rt] O2 Sat by Pulse 98 100 Oximetry 06/27/18 06/27/18 22:00 22:04 Temperature Pulse Rate [ 98 H 78 Right] Respiratory 16 Rate Blood Pressure 99/61 90/63 [rt] O2 Sat by Pulse 99 100 Oximetry - Results/Orders Results/Orders: 06/27/18 Chest,1 View [RAD] Stat 06/27/18 22:32 Arterial Blood Gas Stat Laboratory Results - last 24 hr 06/27/18 06/27/18 21:31 21:31 WBC 16.7 H RBC 2.74 L Hgb 7.4 L* Hct 23.3 L MCV 85.2 MCH 27.0 MCHC 31.8 L RDW 15.4 H Plt Count 300 MPV 8.9 Absolute Neuts (auto) 14.00 H Absolute Lymphs (auto) 1.60 Absolute Monos (auto) 1.00 H Absolute Eos (auto) 0.10 Absolute Basos (auto) 0.10 Neutrophils % 83.6 H Lymphocytes % 9.4 L Monocytes % 6.1 Eosinophils % 0.4 L Basophils % 0.5 Sodium 139 Potassium 3.3 L Chloride 103 Carbon Dioxide 22 Anion Gap 17.3 BUN 29 H Creatinine 1.16 BUN/Creatinine Ratio 25.0 H Random Glucose 222 H Serum Osmolality 290.2 Calcium 8.3 L Total Bilirubin 0.7 AST 65 H ALT 45 Alkaline Phosphatase 61 Serum Total Protein 6.9 Albumin 3.1 L Globulin 3.8 H Albumin/Globulin Ratio 0.8 L - EKG/XRAY/CT EKG: Sinus, Tachy Comments: HR-121 XRAY: chest - left pneumothorax Procedures - Chest Tube Left Mid-Axillary Chest Size of [place] Tube (cm): 18 Chest Tube Procedure Prep: betadine prep, sterile drapes applied Anesthesia: 1% Lidocaine w/ Epi Volume Anesthetic (cc's): 7 [place]: No Number of Attempts: 1 Tube Sutured to Skin: Yes Post Procedure CXR?: Yes Departure - Departure Clinical Impression: Pneumothorax, left, Ventilator dependent, Chronic vegetative state, Hyperglycemia, unspecified Acute and chronic respiratory failure ([id number]) Qualifiers: Respiratory failure complication: unspecified whether with hypoxia or hypercapnia Qualified Code(s): J96.20 - Acute and chronic respiratory failure, unspecified whether with hypoxia or hypercapnia Time of Disposition: 22:35 Disposition: Transfer to Hospital Departure Forms: Patient Portal Self Enrollment Referrals: KRISHNA OATES [Primary Care Provider] - 1-2 Weeks Home Medications: Ambulatory Orders Acetaminophen [Tylenol] 04/17/18 Amiodarone HCl 200 mg PO 04/17/18 Budesonide (Inhalation) [Budesonide] 04/17/18 Cyanocobalamin [Vitamin B-12] 04/17/18 Cyclobenzaprine HCl 5 mg PO 04/17/18 Docusate Sodium 100 mg PO 04/17/18 Famotidine 20 mg PO 04/17/18 Ferrous Sulfate 220 mg PO 04/17/18 Folic Acid 1 mg PO 04/17/18 Hydralazine HCl 100 mg PO 04/17/18 Ipratropium [place] Nebs [Atrovent NEBS] 0.5 mg INH 04/17/18 LORazepam [Ativan] 0.5 mg PO 04/17/18 Labetalol HCl 200 mg PO 04/17/18 Levalbuterol Nebs [Xopenex NEBS] 04/17/18 Levetiracetam [Keppra] 04/17/18 Magnesium Hydroxide [Milk Of Magnesia] 04/17/18 Metoprolol Tartrate 50 mg PO 04/17/18 Polyethylene Glycol 3350 [Miralax] 04/17/18 Cefdinir [Omnicef] 300 mg PO BID 10 Days #20 cap 04/25/18 Transfer to Outside Facility - Transfer Information Accepting Provider:: Dr. Lawrence Bauer Accepting Facility: [facility] Reason for Transfer: required specialist not available - Strip [facility]cher
--- NOTE | 2018-06-27 22:06 | RAD ---
PROCEDURE: XR CHEST 1 VIEW HISTORY: CHEST TUBE PLACEMENT COMPARISON: Chest x-ray done on the same day at 9:19 PM TECHNIQUE: Single projection of the chest was done. FINDINGS: There is presence of a tracheostomy. There is interval placement of a left-sided chest tube with significant interval reduction in the left-sided pneumothorax thorax. Residual pneumothorax is still present, measuring approximately 2.5 cm in the left CP angle region. Note is also made of pneumomediastinum tracking into the upper abdomen . There are no discrete airspace infiltrates or pleural effusions The cardiomediastinal silhouette is stable. IMPRESSION: There is interval placement of a left-sided chest tube with significant interval reduction in the left-sided pneumothorax thorax. Residual pneumothorax is still present, measuring approximately 2.5 cm in the left CP angle region. Note is also made of pneumomediastinum tracking into the upper abdomen . Electronically signed by: Jarod Blancas MD 06/27/2018 10:05 PM CDT Workstation: [id number]
[2018-06-27 22:29] VITALS: O2SAT 100
[2018-06-27] MEDS ORDERED: PIPERACILLIN/TAZOBACTAM 3.375 GM in SODIUM CHLORIDE 0.9% 100ML 100 ML IVPB ONE (22:33)
--- NOTE | 2018-06-27 22:49 | RAD ---
EXAM DESCRIPTION: Chest,1 View CLINICAL HISTORY: 68 years Female, CHEST TUBE POSITION COMPARISON: AP chest June 27, 2018 at 10:05 PM FINDINGS: Tracheostomy tube overlying the trachea noted. No consolidation. Trace residual left-sided pneumothorax. No significant pleural effusion. Left-sided chest tube is present and appears retracted with tip overlying the left posterior sixth rib. Cardiac silhouette appears mildly enlarged. Osseous structures are unremarkable. IMPRESSION: 1. Interval adjustment of the left-sided chest tube. 2. Trace residual left-sided pneumothorax. Electronically signed by: Juan Espinosa MD 06/27/2018 10:47 PM CDT
[2018-06-27] MEDS ORDERED: PIPERACILLIN/TAZOBACTAM 3.375 GM VIAL IVPB ONE (22:51)
[2018-06-27 23:28] VITALS: BP 124/64; TEMP 98.7
== END 2018-06-27 23:40 | disposition short-term general hospital (02) ==
LOC: ER 20:44
DX: J96.20 Acute and chronic respiratory failure, unspecified whether with hypoxia or hypercapnia (principal); J93.9 Pneumothorax, unspecified; D63.8 Anemia in other chronic diseases classified elsewhere; R73.9 Hyperglycemia, unspecified; R40.3 Persistent vegetative state; N18.9 Chronic kidney disease, unspecified; I12.9 Hypertensive chronic kidney disease with stage 1 through stage 4 chronic kidney disease, or unspecified chronic kidney disease; Z99.11 Dependence on respirator [ventilator] status; Z86.73 Personal history of transient ischemic attack (TIA), and cerebral infarction without residual deficits; Z79.899 Other long term (current) drug therapy
CPT/HCPCS: 36600; 71045; 80053; 82550; 82553; 82803; 82805; 83735; 84484; 85025; 85610; 85730; 93005; 94002; J2543; J7030